=== PATIENT | male | born 1950 | race Caucasian/White ===

== ENCOUNTER 2017-10-22 13:00 | Outpatient (RCR) | payer MEDICARE ==
[~2017-10-22 13:00] MED LIST: ASPIRIN81 MG PO; ATENOLOL25 MG PO; ATENOLOL50 MG; COUMADIN2.5 MG PO; COUMADIN3 MG PO; COUMADIN5 MG PO; CRESTOR10 MG PO; GABAPENTIN300 MG PO; HUMULIN N100 UNITS/; HUMULIN-R100 UNITS/; PLAVIX75 MG PO; PROMETHAZINE HC25 M1 PO; TRICOR48 MG PO; TYLENOL WITH C1 EACH PO; ZESTRIL10 MG PO
== END 2017-10-24 ==
LOC: ST 13:00
PROVIDERS: ATTEND Internal Medicine Gastroenterology
DX: R13.13 Dysphagia, pharyngeal phase (principal)
CPT/HCPCS: 92526 ×7; 92610; G8996; G8997

== ENCOUNTER → 2017-11-12 | Outpatient (CLI) | payer MEDICARE ==
--- NOTE | 2017-11-12 15:23 | Diagnostic Imaging Report ---
PROCEDURE:X-RAY MODIFIED BARIUM SWALLOW COMPARISON:[facility], DX, MODIFIED THOM. SWALLOW, 09/21/2017, 12:06. INDICATIONS:SILENT ASPIRATION DISCUSSION:Fluoroscopic examination was performed in conjunction with speech pathology, during swallowing of a variety of thin and thick liquid consistencies. Examination showed premature spillage vallecula and piriform sinus with no consistencies. Consistent silent penetration was noted with thin liquids. Consistent silent aspiration was noted with thin liquids. Moderate vallecular residue and minimal piriform sinus residue. CONCLUSION:[id number] pharyngeal dysphagia characterized by silent aspiration of thin liquids, reduced to deep penetration utilizing chin tucked position. Please see the report from speech pathology for complete details. Cole Holliday M.D. Dictated by: Cole Holliday M.D. on 11/12/2017 at 15:31 Electronically approved by: Cole Holliday M.D. on 11/12/2017 at 15:31
== END ==
LOC: DX 12:41
PROVIDERS: ATTEND Family Medicine
DX: R13.13 Dysphagia, pharyngeal phase (principal); I69.898 Other sequelae of other cerebrovascular disease
CPT/HCPCS: 74230; 92611; G8996; G8997

== ENCOUNTER 2017-11-16 13:42 | Outpatient (RCR) | payer MEDICARE | END 2017-11-24 | LOC: ST 13:42 | PROVIDERS: ATTEND Internal Medicine Gastroenterology | DX: R13.13 Dysphagia, pharyngeal phase (principal); Z86.73 Personal history of transient ischemic attack (TIA), and cerebral infarction without residual deficits | CPT/HCPCS: 92526 ×4; G8996; G8997 ==

== ENCOUNTER 2017-12-17 12:58 | Outpatient (RCR) | payer MEDICARE | END 2017-12-22 | LOC: ST 12:58 | PROVIDERS: ATTEND Internal Medicine Gastroenterology | DX: R13.13 Dysphagia, pharyngeal phase (principal); Z86.73 Personal history of transient ischemic attack (TIA), and cerebral infarction without residual deficits ==

== ENCOUNTER 2018-01-04 12:53 | Outpatient (RCR) | payer MEDICARE | END 2018-01-22 | LOC: ST 12:53 | PROVIDERS: ATTEND Internal Medicine Gastroenterology | DX: R13.13 Dysphagia, pharyngeal phase (principal) ==

== ENCOUNTER → 2018-01-07 | Outpatient (CLI) | payer MEDICARE ==
--- NOTE | 2018-01-07 14:23 | Diagnostic Imaging Report ---
PROCEDURE:X-RAY MODIFIED BARIUM SWALLOW COMPARISON:None. INDICATIONS:Dysphasia with previous strokes DISCUSSION:Fluoroscopic examination was performed in conjunction with speech pathology, during swallowing of a variety of thin and thick liquid consistencies. Fluoroscopy time: 1.7 minutes Total dose: 12.74 mGy CONCLUSION:There is laryngeal penetration into the vestibule with thin liquids and juice and mixed soft mechanical diet with and without chin tuck. Silent bren aspiration is also noted. Please see the report from speech pathology for complete details. Manan Hernandez D.O. Dictated by: Manan Hernandez D.O. on 01/07/2018 at 14:22 Electronically approved by: Manan Hernandez D.O. on 01/07/2018 at 14:22
== END ==
LOC: DX 13:02
PROVIDERS: ATTEND Internal Medicine Gastroenterology
DX: R13.13 Dysphagia, pharyngeal phase (principal); Z86.73 Personal history of transient ischemic attack (TIA), and cerebral infarction without residual deficits
CPT/HCPCS: 74230; 92611; G8996; G8997; G8998

== ENCOUNTER → 2019-07-17 | Outpatient (CLI) | payer MEDICARE | LOC: CARD 13:19 | PROVIDERS: ATTEND Family Medicine | DX: R60.0 Localized edema (principal); I77.1 Stricture of artery | CPT/HCPCS: 93925 ==

== ENCOUNTER → 2019-09-18 | Outpatient (CLI) | payer MEDICARE ==
--- NOTE | 2019-09-18 17:38 | Diagnostic Imaging Report ---
PROCEDURE: X-RAY MODIFIED BARIUM SWALLOW COMPARISON: None. INDICATION: Aspiration Radiation Details: Fluoroscopy time: 1.6 minutes Cumulative dose: 4.8 mGy DISCUSSION: Fluoroscopic examination was performed in conjunction with speech pathology during swallowing a variety of thin and thick liquid consistencies. Provided images demonstrate no laryngeal penetration or aspiration. CONCLUSION: Modified barium swallow demonstrating no laryngeal penetration or aspiration. Please refer to the speech pathology report for further details. Signed by: Estephanie Rodriguez MD on 09/18/2019 5:35 PM
== END ==
LOC: MERGE 13:19 → DX 13:19
PROVIDERS: ATTEND Otolaryngology
DX: R13.13 Dysphagia, pharyngeal phase (principal); R09.89 Other specified symptoms and signs involving the circulatory and respiratory systems; R63.8 Other symptoms and signs concerning food and fluid intake
CPT/HCPCS: 74230

== ENCOUNTER 2020-01-05 11:59 | Outpatient (RCR) | payer MEDICARE ==
--- NOTE | 2020-01-04 17:37 | NUR ---
Patient Name: Compa Flynn JrDOB: [birth year] Age/Sex: 69 MaleOrdering Physician: Dread Beltran MD Clinical Swallow Evaluation/Initial Treatment Session Patient is a 69 year old male with diagnosis of dysphagia. Pt participated in a modified barium swallow study (MBS) on 09/18/19. Pt presented with mild oral and moderate to severe pharyngeal dysphagia with micro-aspiration and penetration of liquids and severe pharyngeal residue. Dysphagia was judged to be secondary to reduced pharyngeal constriction, reduced UES opening/strength, reduced tongue base strength and reduced laryngeal elevation and excursion. Recommendation was made for dysphagia therapy to increase strength and coordination of swallow. Patient was seen in the outpatient clinic for treatment of dysphagia with Neuromuscular Electrical Stimulation (NMES) with VitalStim Therapy and traditional dysphagia therapy with pharyngeal exercises. Pt participated in 12 therapy sessions. MBS 11/18/19 pt presented with moderate pharyngeal dysphagia c/b consistent premature spillage over the base of tonuge, SILENT aspiration of thin liquids, and consistent pharyngeal residue after the swallow. dysphagia was judged to be secondary to decreased hyolaryngeal excursion, decreased pharyngeal constriction, and decreased coordination of the swallow. This is an improvement from the MBS completed 09/12 and supports continuation of treatment. Recommendation was made for dysphagia therapy to increase strength and coordination of swallow. Patient was seen today in the outpatient clinic for initial treatment of Neuromuscular Electrical Stimulation (NMES) with VitalStim Therapy and traditional dysphagia therapy with pharyngeal exercises. Pt was seen with spouse present. Oral motor exam revealed function that was grossly within normal limits. Patient tolerates room air. Hearing appeared to be WFL. Speech and language skills were functional. Pt pleasantly confused, pt with constant wet vocal quality and throat clearing Provided extensive education re: need for therapy, purpose of exercises and NMES, and future plan of care. Pt indicated understanding. Pt was given water and hard candy. Pt was instructed to take small sips and swallow hard, feeling all the muscles in her throat contract. Placement 3b was used to target the mylohyoid muscle, the anterior belly of the digastric muscle, the sternohyoid muscle, the omohyoid muscle, the geniohyoid muscle, and the middle pharyngeal constrictors. Channel 1 of the electrodes was aligned horizontally just above the hyoid bone and channel 2 of the electrodes was aligned horizontally at the level of the thyroid notch. This placement was used to improve base of tongue strength, pharyngeal constriction, and UES function. Pt initially tolerated 10.5 mA, but as the session progressed pt tolerated 20.0 mA. Pt received 50 minutes of stimulation. Cough noted X 7, throat clear X 25+. Wet vocal quality throughout session. During NMES an exercise program was presented, demonstrated, and discussed. Pt completed the exercises with minimal assistance. A home program was assigned. Pt verbalized understanding of the home exercise program. Education provided as indicated. All questions were answered. Pt/daughter indicated that attending therapy 3x/week would be convenient Impressions: Pt tolerated initial session of NMES well. He continues to report and demonstrate s/s of aspiration during meals which significantly interferes with his quality of life. Pt is an excellent candidate for dysphagia exercises and NMES for improvement of strength and coordination of swallow. Recommendations: 1.Dysphagia therapy to include traditional exercises and NMES 2X/week for 6 weeks for a total of 12 treatment sessions 2.Home exercise program 3.Repeat MBS in 4-6 weeks with new goals to be determined at that time Retirement Goal: Pt will tolerate least restrictive diet without s/s of aspiration as judged by an objective evaluation. Short Term Goals: 1.Pt will complete 3 repetitions of a set of dysphagia exercises to improve laryngeal elevation, base of tongue retraction, and laryngeal closure, 10 repetitions per exercise, with minimal cues. 2.Pt will tolerate NMES for 45 60 minutes with no clinical s/s of aspiration to improve strength of pharyngeal constrictors, hyolaryngeal excursion, and safety with po intake. 3.Pt will complete home dysphagia exercise program targeting laryngeal elevation, base of tongue strength, and cricopharyngeal function independently. 4.Pt will follow aspiration precautions with independence. 5.Pt will participate in a repeat Modified Barium Swallow study to objectively re-assess swallow safety and function and determine safest diet. Dorothy Daly M.S. CCC-SENIOR TECHNICAL ARCHITECT Date of Session: 01/04/20 Dysphagia Evaluation and Treatment X 50 minutes Physicians signature below certifies medical necessity for these skilled interventions Physician SignatureDate NOMS Rating for Swallowing: Level 5
--- NOTE | 2020-01-11 09:46 | NUR ---
ST: Pt cx Speech Therapy OP today and tomorrow to social distance. Will call next week if they choose to return to therapy.
--- NOTE | 2020-01-17 14:56 | NUR ---
ST Note: Pt/spouse cancelled appointments for this week and next week secondary to social distancing to avoid COVID-19.
== END 2020-01-23 ==
LOC: ST 11:59
PROVIDERS: ATTEND Otolaryngology
DX: R13.13 Dysphagia, pharyngeal phase (principal)

== ENCOUNTER 2020-04-12 12:46 | Outpatient (RCR) | payer MEDICARE ==
--- NOTE | 2020-04-05 13:39 | NUR ---
ST Note: Pt's spouse called and cancelled appointment due to illness. Pt plans to attend next scheduled appointment.
--- NOTE | 2020-04-10 12:01 | NUR ---
ST Note: Pt's called to cancel appointment due to pt not well. Per report, pt demonstrating increase in slurred speech and drooling. Pt's spouse highly encouraged to either go directly to an ER or call his physician. Pt's spouse reported pt did not want to go to ER because he did not want to be from her. Educated her that one visitor per pt allowed at many facilities, including this one, and that if pt is having a new CVA he needs to go to ER within three hours of onset of symptoms. Pt's spouse indicated understanding and said she would speak with her about going to ER.
--- NOTE | 2020-04-17 13:58 | NUR ---
ST Note: Pt's spouse called and cancelled all future appointments due to increasing number of cases of COVID-19 in the [place] area. Return to clinic for continued dysphagia therapy will be discussed at a later date.
== END 2020-04-23 ==
LOC: ST 12:46
PROVIDERS: ATTEND Otolaryngology
DX: R13.13 Dysphagia, pharyngeal phase (principal)